=== PATIENT | male | born 1990 | race Caucasian/White ===

== ENCOUNTER 2019-03-23 09:10 | Emergency (ER) | payer BC ==
[~2019-03-23] VITALS: Ht 188 cm; Wt 93.2 kg
[2019-03-23 09:29] VITALS: BP 145/89
[2019-03-23] MEDS ORDERED: DOXYCYCLINE 10100 MG PO (09:51)
[2019-03-23 10:10] VITALS: PULSE 71; TEMP 98.2
== END 2019-03-23 10:10 | disposition home or self-care (01) ==
LOC: COL.ER 09:10
DX: L05.91 Pilonidal cyst without abscess (principal)